=== PATIENT | female | born 1955 | race African-American/Black ===

== ENCOUNTER → 2020-12-03 | Outpatient (CLI) | payer MEDICARE, OTHER ==
--- NOTE | 2020-12-03 16:42 | KCIC ---
Three-view right shoulder dated 12/03/2020. No comparison available. Clinical indication shoulder pain started today. No known injury. FINDINGS: 3 views right shoulder show normal bony alignment. No displaced fracture. Mild hypertrophic change of the AC joint. No acute osseous or articular abnormality. IMPRESSION: No acute findings. Electronically signed by: Clifford Pradhan MD (12/03/2020 4:39 PM) [id number]
== END ==
LOC: KCIC 15:30
PROVIDERS: ATTEND Family Medicine
DX: M19.011 Primary osteoarthritis, right shoulder (principal); M77.8 Other enthesopathies, not elsewhere classified
CPT/HCPCS: 73030